=== PATIENT | female | born 1960 | race Two or more races ===

== ENCOUNTER 2023-08-21 14:38 | Emergency (ER) | payer BC, OTHER ==
[~2023-08-21] VITALS: Ht 172.7 cm; Wt 66.4 kg
[2023-08-21 15:29] VITALS: BP 143/92; PULSE 64; RESP 16; TEMP 98; O2SAT 99
[2023-08-21] MEDS ORDERED: TRAM-626 PO (16:26)
[2023-08-21] MEDS: HYDROcodone-ACET 5/325MG TAB PO ONE (16:32)
== END 2023-08-21 16:41 | disposition home or self-care (01) ==
LOC: ER 14:38
DX: S62.002A Unspecified fracture of navicular [scaphoid] bone of left wrist, initial encounter for closed fracture (principal); W01.0XXA Fall on same level from slipping, tripping and stumbling without subsequent striking against object, initial encounter; Y93.89 Activity, other specified; Y92.89 Other specified places as the place of occurrence of the external cause; Y99.8 Other external cause status
CPT/HCPCS: 29125; 73110